=== PATIENT | female | born 1970 | race Asian ===

== ENCOUNTER 2017-04-13 15:41 | Emergency (ER) | payer SELFPAY ==
[2017-04-13 16:04] LABS: URINE HCG POC HCG NEGATIVE (Negative)
[2017-04-13] MEDS: ONDANSETRON PF 4 MG/2 ML VIAL. IV (16:16)
[2017-04-13] MEDS: MORPHINE SULFATE 2 MG/ML DISP.SYRIN. IV (16:17)
[2017-04-13 16:18] LABS: HEMATOCRIT 43.7 % (36.0-47.0); HEMOGLOBIN 14.5 g/dL (12.0-15.5); MEAN CORPUSCULAR HEMOGLOBIN 29 pg (25-35); MEAN CORPUSCULAR HGB CONC 33 g/dL (31-37); MEAN CORPUSCULAR VOLUME 89 fL (79-100); PLATELET COUNT 213 x10^3/uL (140-400); RED BLOOD COUNT 4.93 x10^6/uL (3.50-5.40); RED CELL DISTRIBUTION WIDTH 13.4 % (11.5-14.5); WHITE BLOOD COUNT 11.8 x10^3/uL (4.0-11.0)
[2017-04-13 16:32] LABS: BILIRUBIN,URINE NEGATIVE (NEG); GLUCOSE,URINE NEGATIVE (NEG); NITRITE,URINE NEGATIVE (NEG); PH,URINE 5.5; PROTEIN,URINE NEGATIVE (NEG-TRACE); UROBILINOGEN,URINE 0.2 mg/dL (0.2 mg/dL)
[2017-04-13 16:36] LABS: ANION GAP 10 (6-14); BLOOD UREA NITROGEN 10 mg/dL (7-20); BUN/CREATININE RATIO 17 (6-20); CALCIUM 8.5 mg/dL (8.5-10.1); CARBON DIOXIDE 26 mmol/L (21-32); CHLORIDE 104 mmol/L (98-107); CREATININE 0.6 mg/dL (0.6-1.0); GFR 108.6; GLUCOSE 88 mg/dL (70-99); POTASSIUM 3.7 mmol/L (3.5-5.1); SODIUM 140 mmol/L (136-145)
[2017-04-13 16:42] LABS: ALBUMIN 3.5 g/dL (3.4-5.0); ALBUMIN/GLOBULIN RATIO 0.9 (1.0-1.7); ALK PHOS 72 U/L (46-116); ALT (SGPT) 22 U/L (14-59); AST (SGOT) 15 U/L (15-37); TOTAL BILIRUBIN 0.6 mg/dL (0.2-1.0); TOTAL PROTEIN 7.5 g/dL (6.4-8.2)
[2017-04-13] MEDS: IOHEXOL 300 MG/ML 100ML VIAL. IV (16:42)
[2017-04-13 16:44] LABS: BACTERIA,URINE MANY /HPF (0-FEW); SQUAMOUS EPITHELIAL CELL,UR MANY /LPF
== END 2017-04-13 18:24 | disposition home or self-care (01) ==
LOC: ER 15:41
DX: K52.9 Noninfective gastroenteritis and colitis, unspecified (principal); Z90.49 Acquired absence of other specified parts of digestive tract
CPT/HCPCS: 36415; 74177; 80053; 81001; 81025; 83690; 85027; 96374; 96375; 99285-25; J2270; J2405; Q9967